=== PATIENT | male | born 1960 | race Caucasian/White ===

== ENCOUNTER 2021-06-04 14:44 | Inpatient (IN) ==
[2021-06-04] MEDS ORDERED: ONDANSETRON 4 MG/2 ML VIAL ONE (15:22)
[2021-06-04] MEDS ORDERED: SODIUM CHLORIDE 0.9% 1,000 ML IV STA (15:29)
[2021-06-04] MEDS ORDERED: ONDANSETRON 4 MG/2 ML VIAL IV STA ×2 (15:29→15:32)
[2021-06-04 16:31] LABS: Basophils % 0.2 % (0.0-0.8); Eosinophils % 0.1 % (0.00-10.9); Hematocrit 54.4 VOL% (42.0-52.0); Hemoglobin 18.2 GM/DL (14.0-18.0); Immature Granulocytes % 0.4 %; Immature Granulocytes Absolute 0.06 #; Lymphocytes % 6.8 % (21.2-54.2); Mean Corpuscular HGB Conc 33.5 GM/DL (32-36); Mean Corpuscular Volume 81.9 FL (87-102); Mean Platelet Volume 10.4 FL (9.6-12.0); Monocytes # 0.9 10*3/uL (0.11-0.8); Monocytes % 6.5 % (1.7-12.7); Platelet Count 338 T/CUMM (130-400); Red Blood Count 6.64 MC/CUMM (3.8-5.5); Red Cell Distribution Width 13.5 % (9.3-17.3); White Blood Count 14.1 T/CUMM (4-12)
[2021-06-04 16:46] LABS: Albumin 4.1 G/DL (3.4-5.0); Bilirubin,Total 1.9 MG/DL (0.20-1.00); CKMB % 3.06 %; Calcium 10.1 MG/DL (8.5-10.1); Osmolality,Calculated 272.2 MOS/KG (273-304); Potassium 2.9 MMOL/L (3.5-5.1); Total Protein 8.2 G/DL (6.4-8.2)
[2021-06-04 16:47] LABS: High Sensitive Troponin I* 2164.9 ng/L (0-78)
[2021-06-04 16:56] LABS: Anisocytosis Slight; Microcytosis Slight; Platelet Estimate Adequate
[2021-06-04] MEDS ORDERED: ENOXAPARIN 100 MG/ML SYRINGE SUBCUT STA (17:36)
[2021-06-04] MEDS ORDERED: ENOXAPARIN 80 MG/0.8 ML SYRINGE SUBCUT ONE (17:38)
[2021-06-04] MEDS ORDERED: ENOXAPARIN 80 MG/0.8 ML SYRINGE SUBCUT STA (17:43)
[2021-06-04] MEDS ORDERED: ALBUTEROL 2.5 MG/3 ML NEB RESP TX PRN (18:03)
[2021-06-04] MEDS ORDERED: hydrALAZINE 20 MG/1 ML VIAL IV PRN (18:03)
[2021-06-04] MEDS ORDERED: MORPHINE 2 MG/1 ML SYRINGE IV PRN (18:03)
[2021-06-04] MEDS ORDERED: GLUCAGON 1 MG VIAL IM PRN (18:03)
[2021-06-04] MEDS ORDERED: ONDANSETRON 4 MG/2 ML VIAL IV PRN (18:03)
[2021-06-04] MEDS ORDERED: ACETAMINOPHEN 325 MG TABLET PO PRN (18:03)
[2021-06-04] MEDS ORDERED: LACTULOSE 20 GM/30 ML UDCUP PO PRN (18:03)
[2021-06-04] MEDS ORDERED: ALUMINUM/MAGNES/SIMETH MAX STR 30 ML UDCUP PO PRN (18:03)
[2021-06-04] MEDS ORDERED: NITROGLYCERIN SL 0.4 MG TABLET SL PRN (18:09)
[2021-06-04] MEDS ORDERED: DEXTROSE 10% 250 ML BAG IV PRN (18:11)
[2021-06-04] MEDS ORDERED: ASPIRIN CHEW 81 MG TABLET PO STA (18:19)
[2021-06-04] MEDS: POTASSIUM CHLORIDE 20 MEQ TABLET PO SCH ×2 (18:29→21:27)
[2021-06-04] MEDS: SODIUM CHLORIDE 0.9% 1,000 ML IV SCH (18:29)
[2021-06-04 18:34] LABS: Mucus,Urine Occasional /LPF (Occasional); RBC,Urine 1 /HPF (0-4)
[2021-06-04 18:36] LABS: Bilirubin,Urine Small mg/dL (Negative); Blood, Urine Negative (Negative); Glucose,Urine (UA) Negative (Negative); Ketones,Urine >=160 mg/dL (Negative); Nitrite,Urine Negative (Negative); Protein,Urine 30 mg/dL (Negative); Urine Appearance Clear (Clear); Urine Color Yellow (Yellow); Urine Specific Gravity 1.025 (1.001-1.035); Urine Urobilinogen 0.2 eU/dL (<2.0); Urine pH 8.5 (4.5-8.0)
[2021-06-04] MEDS: NITROGLYCERIN 2% OINT 1 INCH/GM PACK TOP SCH (19:23)
[2021-06-04] MEDS: DOCUSATE SODIUM 100 MG CAPSULE PO SCH (21:27)
[2021-06-04 22:13] LABS: Barbiturates Screen,Urine Negative (Negative); Benzodiazepines Screen,Urine Negative (Negative); Cannabinoid Screen,Urine Positive (Negative); Opiate Screen,Urine Negative (Negative); Phencyclidine Screen,Urine Negative (Negative)
[2021-06-05] MEDS: POTASSIUM CHLORIDE 20 MEQ TABLET PO SCH (00:12)
[2021-06-05] MEDS: NITROGLYCERIN 2% OINT 1 INCH/GM PACK TOP SCH ×4 (00:13→17:46)
[2021-06-05 02:00] LABS: Basophils # 0.1 10*3/uL (0.0-0.2); Basophils % 0.6 % (0.0-0.8); Eosinophils % 0.3 % (0.00-10.9); Hemoglobin 14.6 GM/DL (14.0-18.0); Immature Granulocytes % 0.3 %; Immature Granulocytes Absolute 0.04 #; Lymphocytes # 2.8 10*3/uL (1.4-4.0); Lymphocytes % 24.1 % (21.2-54.2); Mean Corpuscular HGB Conc 33.2 GM/DL (32-36); Mean Corpuscular Volume 82.4 FL (87-102); Mean Platelet Volume 9.5 FL (9.6-12.0); Monocytes % 8.5 % (1.7-12.7); Neutrophils % 66.2 % (38.7-73.9); Platelet Count 269 T/CUMM (130-400); Red Blood Count 5.34 MC/CUMM (3.8-5.5); Red Cell Distribution Width 13.6 % (9.3-17.3); White Blood Count 11.6 T/CUMM (4-12)
[2021-06-05 02:35] LABS: Calcium 8.2 MG/DL (8.5-10.1); Osmolality,Calculated 277.7 MOS/KG (273-304); Potassium 3.7 MMOL/L (3.5-5.1); Risk Ratio 3.89; Thyroid Stimulating Hormone 0.8 uIU/ml (0.358-3.74)
[2021-06-05] MEDS: SODIUM CHLORIDE 0.9% 1,000 ML IV SCH ×3 (05:19→20:43)
[2021-06-05] MEDS: ENOXAPARIN 80 MG/0.8 ML SYRINGE SUBCUT SCH ×2 (06:28→17:45)
[2021-06-05] MEDS: DOCUSATE SODIUM 100 MG CAPSULE PO SCH ×2 (09:42→20:42)
[2021-06-05] MEDS: PANTOPRAZOLE 40 MG TABLET PO SCH (09:42)
[2021-06-05] MEDS: SERTRALINE 50 MG TABLET PO SCH (09:42)
[2021-06-05] MEDS: ASPIRIN CHEW 81 MG TABLET PO SCH (09:42)
[2021-06-05] MEDS ORDERED: DIAZEPAM 5 MG TABLET PO ONE (10:42)
[2021-06-05] MEDS ORDERED: diphenhydrAMINE CAP 25 MG CAPSULE PO ONE (10:42)
[2021-06-05] MEDS ORDERED: MIDAZOLAM 2 MG/2 ML VIAL ONE (13:33)
[2021-06-05] MEDS ORDERED: fentaNYL 100 MCG/2 ML VIAL ONE (13:33)
[2021-06-05] MEDS ORDERED: VERAPAMIL 5 MG/2 ML VIAL ONE (13:36)
[2021-06-05] MEDS ORDERED: NITROGLYCERIN DRIP 50 MG/250 ML BOTTLE IV ONE (13:36)
[2021-06-05] MEDS ORDERED: PROMETHAZINE 25 MG/1 ML VIAL ONE (13:42)
[2021-06-05] MEDS ORDERED: ENOXAPARIN 30 MG/0.3 ML SYRINGE ONE (13:46)
[2021-06-06] MEDS: NITROGLYCERIN 2% OINT 1 INCH/GM PACK TOP SCH ×3 (00:38→11:54)
[2021-06-06 04:52] LABS: Basophils # 0.1 10*3/uL (0.0-0.2); Basophils % 0.7 % (0.0-0.8); Eosinophils # 0.2 10*3/uL (0.0-0.87); Eosinophils % 2.1 % (0.00-10.9); Hematocrit 42.4 VOL% (42.0-52.0); Hemoglobin 13.6 GM/DL (14.0-18.0); Immature Granulocytes % 0.1 %; Immature Granulocytes Absolute 0.01 #; Lymphocytes # 2.4 10*3/uL (1.4-4.0); Lymphocytes % 32.4 % (21.2-54.2); Mean Corpuscular HGB Conc 32.1 GM/DL (32-36); Mean Corpuscular Volume 85.7 FL (87-102); Mean Platelet Volume 9.9 FL (9.6-12.0); Monocytes # 0.6 10*3/uL (0.11-0.8); Monocytes % 8.8 % (1.7-12.7); Neutrophils % 55.9 % (38.7-73.9); Platelet Count 231 T/CUMM (130-400); Red Blood Count 4.95 MC/CUMM (3.8-5.5); Red Cell Distribution Width 13.9 % (9.3-17.3); White Blood Count 7.3 T/CUMM (4-12)
[2021-06-06 05:05] LABS: Calcium 7.9 MG/DL (8.5-10.1); Potassium 4.2 MMOL/L (3.5-5.1)
[2021-06-06] MEDS: ENOXAPARIN 80 MG/0.8 ML SYRINGE SUBCUT SCH (06:02)
[2021-06-06] MEDS: SODIUM CHLORIDE 0.9% 1,000 ML IV SCH ×2 (06:03→12:45)
[2021-06-06] MEDS: PANTOPRAZOLE 40 MG TABLET PO SCH (08:13)
[2021-06-06] MEDS: SERTRALINE 50 MG TABLET PO SCH (08:13)
[2021-06-06] MEDS: DOCUSATE SODIUM 100 MG CAPSULE PO SCH (08:14)
[2021-06-06] MEDS: ASPIRIN CHEW 81 MG TABLET PO SCH (08:14)
[2021-06-06] MEDS ORDERED: amLODIPine 5 MG TABLET PO SCH (09:00)
[2021-06-06 09:11] VITALS: BP 117/78
[2021-06-07] MEDS ORDERED: ROSUVASTATIN 20 MG TABLET PO SCH (09:00)
== END 2021-06-06 13:37 | disposition home or self-care (01) | DRG 281 ==
LOC: N.ED 14:44 → N.EDINP 18:03 → N.TELEN 19:12
PROVIDERS: ADMIT Internal Medicine; ATTEND Internal Medicine
PROC: CLCCHCL (ICD-10-PCS; 2021-06-05 14:45)

== ENCOUNTER 2021-06-11 11:18 | Observation (INO) ==
[2021-06-11 13:07] LABS: Basophils % 0.2 % (0.0-0.8); Eosinophils % 0.1 % (0.00-10.9); Hematocrit 50.5 VOL% (42.0-52.0); Hemoglobin 16.6 GM/DL (14.0-18.0); Immature Granulocytes % 0.4 %; Immature Granulocytes Absolute 0.05 #; Lymphocytes % 8.1 % (21.2-54.2); Mean Corpuscular HGB Conc 32.9 GM/DL (32-36); Mean Corpuscular Volume 83.3 FL (87-102); Mean Platelet Volume 9.9 FL (9.6-12.0); Monocytes # 0.4 10*3/uL (0.11-0.8); Monocytes % 3.3 % (1.7-12.7); Neutrophils % 87.9 % (38.7-73.9); Platelet Count 338 T/CUMM (130-400); Red Blood Count 6.06 MC/CUMM (3.8-5.5); Red Cell Distribution Width 13.8 % (9.3-17.3); White Blood Count 12.5 T/CUMM (4-12)
[2021-06-11 13:28] LABS: PT Patient Result 10.8 SECS (10.5-12.0)
[2021-06-11] MEDS ORDERED: hydrALAZINE 20 MG/1 ML VIAL IV STA (16:38)
[2021-06-11] MEDS ORDERED: ONDANSETRON 4 MG/2 ML VIAL IV STA (16:38)
[2021-06-11] MEDS ORDERED: PROMETHAZINE 25 MG/1 ML VIAL IM STA (16:38)
[2021-06-11] MEDS ORDERED: LORazepam 2 MG/1 ML VIAL IV STA (16:44)
[2021-06-11 17:26] LABS: Albumin 4.4 G/DL (3.4-5.0); Bilirubin,Total 0.6 MG/DL (0.20-1.00); Calcium 9.5 MG/DL (8.5-10.1); Osmolality,Calculated 276.8 MOS/KG (273-304); Potassium 3.7 MMOL/L (3.5-5.1); Total Protein 8.2 G/DL (6.4-8.2)
[2021-06-11] MEDS ORDERED: ZALEPLON 5 MG CAPSULE PO PRN (17:44)
[2021-06-11] MEDS ORDERED: PROMETHAZINE 25 MG TABLET PO PRN (17:44)
[2021-06-11] MEDS ORDERED: GLUCAGON 1 MG VIAL IM PRN (17:44)
[2021-06-11] MEDS ORDERED: ACETAMINOPHEN 325 MG TABLET PO PRN (17:44)
[2021-06-11] MEDS ORDERED: MORPHINE 2 MG/1 ML SYRINGE IV PRN (17:44)
[2021-06-11] MEDS ORDERED: ONDANSETRON 4 MG/2 ML VIAL IV PRN (17:44)
[2021-06-11] MEDS ORDERED: PROMETHAZINE 25 MG/1 ML VIAL IM PRN (17:44)
[2021-06-11] MEDS ORDERED: NICOTINE 21 MG/24 HR PATCH TRANSDERM PRN (17:44)
[2021-06-11] MEDS ORDERED: guaiFENesin/DM ER 600-30 MG TABLET PO PRN (17:44)
[2021-06-11] MEDS ORDERED: hydrALAZINE 20 MG/1 ML VIAL IV PRN (17:44)
[2021-06-11] MEDS ORDERED: BISACODYL 5 MG TABLET PO PRN (17:44)
[2021-06-11] MEDS ORDERED: diphenhydrAMINE CAP 25 MG CAPSULE PO PRN (17:44)
[2021-06-11] MEDS ORDERED: NITROGLYCERIN SL 0.4 MG TABLET SL PRN (17:47)
[2021-06-11] MEDS ORDERED: DEXTROSE 10% 250 ML BAG IV PRN (17:53)
[2021-06-11] MEDS: DEXTROSE 5% NACL 0.9% 1,000 ML IV SCH (18:00)
[2021-06-11] MEDS: ENOXAPARIN 100 MG/ML SYRINGE SUBCUT SCH (18:57)
[2021-06-11] MEDS ORDERED: SODIUM CHLORIDE 0.9% 2,000 ML IV ONE (23:45)
[2021-06-12] MEDS ORDERED: cefTRIAXone 1,000 MG in SODIUM CHLORIDE 0.9% 100 ML IV SCH
[2021-06-12 01:34] LABS: Basophils # 0.1 10*3/uL (0.0-0.2); Basophils % 0.4 % (0.0-0.8); Eosinophils # 0.1 10*3/uL (0.0-0.87); Eosinophils % 0.5 % (0.00-10.9); Hematocrit 43.6 VOL% (42.0-52.0); Hemoglobin 14.3 GM/DL (14.0-18.0); Immature Granulocytes % 0.4 %; Immature Granulocytes Absolute 0.05 #; Lymphocytes # 2.8 10*3/uL (1.4-4.0); Lymphocytes % 22.2 % (21.2-54.2); Mean Corpuscular HGB Conc 32.8 GM/DL (32-36); Mean Corpuscular Volume 83.5 FL (87-102); Mean Platelet Volume 9.7 FL (9.6-12.0); Monocytes % 7.9 % (1.7-12.7); Neutrophils % 68.6 % (38.7-73.9); Platelet Count 295 T/CUMM (130-400); Red Blood Count 5.22 MC/CUMM (3.8-5.5); Red Cell Distribution Width 13.8 % (9.3-17.3); White Blood Count 12.7 T/CUMM (4-12)
[2021-06-12 01:49] LABS: Calcium 8.7 MG/DL (8.5-10.1); Osmolality,Calculated 280.5 MOS/KG (273-304); Potassium 3.7 MMOL/L (3.5-5.1)
[2021-06-12] MEDS: metroNIDAZOLE INJ 500 MG/100 ML PREMIX IV SCH ×2 (02:18→09:46)
[2021-06-12] MEDS: VANCOMYCIN INJ 1,000 MG in SODIUM CHLORIDE 0.9% 250 ML IV SCH ×2 (04:29→13:40)
[2021-06-12] MEDS ORDERED: PANTOPRAZOLE 40 MG TABLET PO SCH (06:30)
[2021-06-12 06:39] LABS: Mucus,Urine Few /LPF (Occasional); RBC,Urine 2 /HPF (0-4)
[2021-06-12 06:40] LABS: Glucose,Urine (UA) Negative (Negative); Ketones,Urine Trace mg/dL (Negative); Protein,Urine Negative (Negative); Urine Appearance Clear (Clear); Urine Color Yellow (Yellow); Urine Specific Gravity > 1.030 (1.001-1.035); Urine pH 5.5 (4.5-8.0)
[2021-06-12 06:41] LABS: Bilirubin,Urine Negative (Negative); Blood, Urine Negative (Negative); Nitrite,Urine Negative (Negative); Urine Urobilinogen 0.2 eU/dL (<2.0)
[2021-06-12] MEDS: ENOXAPARIN 100 MG/ML SYRINGE SUBCUT SCH (06:50)
[2021-06-12] MEDS ORDERED: ROSUVASTATIN 20 MG TABLET PO SCH (09:00)
[2021-06-12] MEDS ORDERED: ASPIRIN CHEW 81 MG TABLET PO SCH (09:00)
[2021-06-12] MEDS ORDERED: amLODIPine 5 MG TABLET PO SCH (09:00)
[2021-06-12 13:00] VITALS: BP 121/76
[2021-06-12] MEDS: DEXTROSE 5% NACL 0.9% 1,000 ML IV SCH (15:12)
== END 2021-06-12 15:12 | disposition home or self-care (01) ==
LOC: N.ED 11:18 → N.EDINP 17:45 → INTOOBSV 17:45 → N.TELEN 21:52
PROVIDERS: ADMIT Internal Medicine; ATTEND Internal Medicine